=== PATIENT | male | born 1965 | race Caucasian/White ===

== ENCOUNTER 2018-03-24 07:31 | Emergency (ER) | payer OTHER ==
[2018-03-24] MEDS ORDERED: diPHENhydraMINE IV* 50 MG/ML 1 ml VIAL (BENADRYL) SLOW PUSH ONE (07:44)
[2018-03-24] MEDS ORDERED: Famotidine IV* 10 MG/ML 2 ML (20 mg) IV SLOW PU ONE (07:44)
[2018-03-24] MEDS ORDERED: methylPREDNISolone 125 MG* 2 ML VIAL IV ONE (07:44)
[2018-03-24] MEDS ORDERED: diPHENhydraMINE IV* 50 MG/ML 1 ml VIAL (BENADRYL) ONE (07:45)
[2018-03-24] MEDS ORDERED: methylPREDNISolone 125 MG* 2 ML VIAL ONE (07:45)
[2018-03-24] MEDS ORDERED: Famotidine IV* 10 MG/ML 2 ML (20 mg) ONE (07:45)
--- NOTE | 2018-03-24 07:54 | ED ---
Allergic Reaction/Systemic - HPI Summary HPI Summary: This is scribe John Joseph documenting for attending Chris Rodriguez M.D. Patient is a 52 y/o M w/ c/o bee sting from yellow jacket this morning about 45 minutes ago. He reports he was vacuuming up bees from inside the siding of his place of work, a shop, when he was stung on the nose. He subsequently had a reaction to the sting. Associated pain is rated 5/10 on triage. Patient reports some SOB/difficulty breathing but notes this is due to facial swelling as opposed to throat tightening. He notes he has been stung previously with the most recent episode being a couple of years ago. He states that when he was previously stung his eyes "swelled shut". Patient notes he has epi-pen but did not use it as he reports being unsure as to whether or not he should take it. On triage, it is reported that patient took Benadryl COMMUNICATION INSTRUCTOR which was noted to help alleviate Sx. Smoking is denied. In room, patient denies other medical problems and states he does not have any home medications. I, Dr. Rodriguez, personally performed the services described in this documentation as scribed in my presence and it is both accurate and complete. - History of Current Complaint Chief Complaint: EDAllergicReaction Hx Obtained From: Patient Onset/Duration: Sudden Onset - bee sting occurred 45 minutes ago, reaction shortly afterwards, Started minutes ago - bee sting occurred 45 minutes ago, reaction shortly afterwards, Still Present - swelling still present, some difficulty breathing secondary to facial swelling Timing: Constant, Lasting Minutes - bee sting occurred 45 minutes ago Severity Currently: Moderate - 5/10 on triage Pain Intensity: 5 Pain Scale Used: 0-10 Numeric - 5/10 Location: Discrete @ - face Character: Swelling, Pain Aggravating Factor(s): Nothing Alleviating Factor(s): Antihistamines - Benadryl Associated Signs And Symptoms: Positive: Difficulty Breathing - secondary to facial swelling, Other: - POSITIVE: facial swelling and pain - Related Hx Possible Reaction To: Insect - yellow jacket - Allergies/Home Medications Allergies/Adverse Reactions: Allergies Allergy/AdvReac Type Severity Reaction Status Date / Time BEE STINGS Allergy Anaphylatic Uncoded 03/24/18 07:36 Shock PMH/Surg Hx/FS Hx/Imm Hx Respiratory History: Reports: Other Respiratory Problems/Disorders - PARTIAL PNUEMOTHORAX L SIDE 1989 Sensory History: Denies: Hx Legally Blind Opthamlomology History: Denies: Hx Legally Blind Infectious Disease History: No Infectious Disease History: Denies: Traveled Outside the [place] in Last 30 Days - Family History Known Family History: Positive: Diabetes - father - Social History Alcohol Use: Daily Substance Use Type: Reports: None Review of Systems Positive: Other - reaction to bee sting . Negative: Fever, Chills Negative: Erythema Negative: Sore Throat Positive: Shortness Of Breath - reports difficulty breathing secondary to facial swelling. Negative: Cough Negative: Abdominal Pain, Vomiting, Nausea Negative: dysuria, hematuria Negative: Myalgia, Edema Positive: Other - facial swelling and pain . Negative: Rash Neurological: Other - NEGATIVE: dizziness All Other Systems Reviewed And Are Negative: Yes Physical Exam - Summary Physical Exam Summary: Constitutional: Well-developed, Well-nourished, Alert. (-) Distressed Skin: Warm, Dry; Upper lip angioedema, swelling to nose. HENT: Normocephalic; Atraumatic Eyes: Conjunctiva normal Neck: Musculoskeletal ROM normal neck. (-) JVD, (-) Stridor, (-) Tracheal deviation Cardio: Rhythm regular, rate normal, Heart sounds normal; Intact distal pulses; The pedal pulses are 2+ and symmetric. Radial pulses are 2+ and symmetric. (-) Murmur Pulmonary/Chest wall: Effort normal. (-) Respiratory distress, (-) Wheezes, (-) Rales, (-) Stridor Abd: Soft, (-) epigastric tenderness, (-) Distension, (-) Guarding, (-) Rebound Musculoskeletal: (-) Edema Lymph: (-) Cervical adenopathy Neuro: Alert, Oriented x3 Psych: Mood and affect Normal Triage Information Reviewed: Yes Vital Signs On Initial Exam: Initial Vitals Temp Pulse Resp BP Pulse Ox 97.9 F 75 16 145/94 94 03/24/18 07:33 03/24/18 07:33 03/24/18 07:33 03/24/18 07:33 03/24/18 07:33 Vital Signs Reviewed: Yes Diagnostics - Vital Signs Vital Signs Temp Pulse Resp BP Pulse Ox 03/24/18 07:33 97.9 F 75 16 145/94 94 - Laboratory Lab Statement: Any lab studies that have been ordered have been reviewed, and results considered in the medical decision making process. Re-Evaluation - Re-Evaluation First Eval Re-Evaluation Time: 10:46 Change: Improved Comment: Patient's condition is improved. He thinks his epi-pen is , will be given new script. Patient told to keep epi-pens with him and noted that further consequent reactions could be more severe. Patient is agreeable with discharge to home and follow up plan. Allergic Reaction Course/Dx - Course Assessment/Plan: Patient is a 52 y/o M w/ c/o bee sting from yellow jacket this morning about 45 minutes ago. He reports he was vacuuming up bees when he was stung on the nose. He subsequently had a reaction to the sting. Associated pain is rated 5/10 on triage. Patient reports some SOB/difficulty breathing but notes this is due to facial swelling as opposed to throat tightening. He notes he has been stung previously with the most recent episode being a couple of years ago. He states that when he was previously stung his eyes "swelled shut". Patient notes he has epi-pen but did not use it. On triage, it is reported that patient took Benadryl COMMUNICATION INSTRUCTOR which was noted to help alleviate Sx. In room, patient denies other medical problems and states he does not have any home medications. On physical exam, patient was observed to have upper lip angioedema , swelling to nose, no stridor, and no wheezing. No signs of anaphylaxis are noted. During ED course, patient received Benadryl IV 50 mg SLOW PUSH ONCE, Pepcid 40 mg IV SLOW PUSH ONCE, and Solu-Medrol 125 mg IV ED ONCE. At 1046, patient was re-evaluated. Patient's condition is improved. He thinks his epi- pen is , will be given new script. Patient told to keep epi-pens with him and noted that further consequent reactions could be more severe. Patient is agreeable with discharge to home and follow up plan. He was diagnosed with allergic reaction to bee sting and was prescribed EPINEPHrine [Epipen 2-Mikey] 0.3 mg IM SEE INSTRUCTIONS PRN #2 inj. PRN Reason: Allergy Symptoms;. predniSONE TAB* [Deltasone TAB*] 50 mg PO DAILY #4 tab. - Diagnoses Provider Diagnoses: Allergic reaction to bee sting Discharge - Sign-Out/Discharge Documenting (check all that apply): Patient Departure - discharge - Discharge Plan Condition: Stable Disposition: HOME Prescriptions: EPINEPHrine [Epipen 2-Mikey] 0.3 mg IM SEE INSTRUCTIONS PRN #2 inj PRN Reason: Allergy Symptoms predniSONE TAB* [Deltasone TAB*] 50 mg PO DAILY #4 tab Patient Education Materials: Insect Bite or Sting (ED) Referrals: Quirino Betancourt DO [Primary Care Provider] - 2 Days Additional Instructions: Return to ED for any changing or worsening symptoms.
[2018-03-24 11:28] VITALS: BP 134/84
== END 2018-03-24 11:20 | disposition home or self-care (01) ==
LOC: ED 07:31
DX: T63.461A Toxic effect of venom of wasps, accidental (unintentional), initial encounter (principal); R06.02 Shortness of breath; T78.3XXA Angioneurotic edema, initial encounter; R22.0 Localized swelling, mass and lump, head; Y92.9 Unspecified place or not applicable; Z91.038 Other insect allergy status
CPT/HCPCS: 96374; 96375; 99284; J1200; J2930